=== PATIENT | male | born 1960 | race African-American/Black ===

== ENCOUNTER 2018-05-21 14:24 | Inpatient (IN) | payer OTHER ==
[2018-05-21 17:31] VITALS: BMI 24.4
--- NOTE | 2018-05-21 18:22 | HP ---
CIWA Score Nausea/Vomitin Muscle Tremors: 3 Anxiety: 2 Agitation: 2 Paroxysmal Sweats: 3 Orientation: 0-Oriented Tacttile Disturbances: 0-None Auditory Disturbances: 0-None Visual Disturbances: 0-None Headache: 2-Mild CIWA-Ar Total Score: 14 - Admission Criteria OASAS Guidelines: Admission for Medically Managed Detox: Requires at least one of the followin. CIWA greater than 12 2. Seizures within the past 24 hours 3. Delirium tremens within the past 24 hours 4. Hallucinations within the past 24 hours 5. Acute intervention needed for co occurring medical disorder 6. Acute intervention needed for co occurring psychiatric disorder 7. Severe withdrawal that cannot be handled at a lower level of care (continued vomiting, continued diarrhea, abnormal vital signs) requiring intravenous medication and/or fluids 8. Patient presents the following: CIWA greater than 12 Admission Criteria Met: Admission criteria met Admission ROS [facility] Chief Complaint: alcohol detox 57 yo here for detox so he can remain alcohol free which is required before he can have bilateral hip surgery. His surgeon- Dr. Douglas referred pt here. Pt recently completed alcohol detox and rehab last month from [facility], but restarted drinking alcohol. Pt would like to go for rehab after detox. Alcohol- 6 beers day, no h/o seizures or DT's no other drug use DUR_ no recent controlled substance prescription Utox- no meds BERONICA- 0.09 Allergies/Adverse Reactions: Allergies Allergy/AdvReac Type Severity Reaction Status Date / Time No Known Allergies Allergy Verified 05/21/18 18:36 - Ebola screening Have you traveled outside of the country in the last 21 days: No (N) Have you had contact with anyone from an Ebola affected area: No Have you been sick,other than usual withdrawal symptoms: No Do you have a fever: No - Review of Systems Constitutional: No Symptoms Reported EENT: reports: No Symptoms Reported Respiratory: reports: No Symptoms reported Cardiac: reports: No Symptoms Reported GI: reports: No Symptoms Reported : reports: No Symptoms Reported Musculoskeletal: reports: Joint Pain (hip pain), Joint Stiffness, Other Integumentary: reports: Pruritus, Rash (with new rash- seen by derm given antibiotics and muciprocin- did not get better), Other Neuro: reports: No Symptoms reported Endocrine: reports: No Symptoms Reported Hematology: reports: No Symptoms Reported Psychiatric: reports: No Sypmtoms Reported Patient History - Patient Medical History Hx Anemia: No Hx Asthma: No Hx Chronic Obstructive Pulmonary Disease (COPD): No Hx Cancer: No Hx Cardiac Disorders: No Hx Congestive Heart Failure: No Hx Hypertension: No Hx Hypercholesterolemia: No Hx Pacemaker: No HX Cerebrovascular Accident: No Hx Seizures: No Hx Dementia: No Hx Diabetes: No Hx Gastrointestinal Disorders: No Hx Liver Disease: No Hx Genitourinary Disorders: No Hx Sexually Transmitted Disorders: No Hx Renal Disease (ESRD): No Hx Thyroid Disease: No Hx Human Immunodeficiency Virus (HIV): No Hx Hepatitis C: No Hx Depression: No Hx Suicide Attempt: No Hx Bipolar Disorder: No Hx Schizophrenia: No Other Medical History: bilateral hip pain - Patient Surgical History Other Surgical History: none yet - PPD History Previous Implant?: Yes - Smoking Cessation Smoking history: Current every day smoker Have you smoked in the past 12 months: Yes Aproximately how many cigarettes per day: 20 Hx Chewing Tobacco Use: No Initiated information on smoking cessation: Yes 'Breaking Loose' booklet given: 05/21/18 Family Disease History - Family Disease History Family History: Denies (none per pt) Admission Physical Exam BHS - Vital Signs Vital Signs: Vital Signs - 24 hr 05/21/18 17:27 Temperature 98.7 F Pulse Rate 100 H Respiratory 18 Rate Blood Pressure 156/90 - Physical General Appearance: Yes: Within Normal Limits, No Apparent Distress, Nourished HEENTM: Yes: Within Normal Limits Respiratory: Yes: Within Normal Limits Neck: Yes: Within Normal Limits Cardiology: Yes: Within Normal Limits Abdominal: Yes: Within Normal Limits Genitourinary: Yes: Within Normal Limits Back: Yes: Within Normal Limits Musculoskeletal: Yes: Other (L hip pain> R hip, decreased range of motion) Neurological: Yes: Within Normal Limits Integumentary: Yes: Other (pt with eczema like lesions on back- scaling, thickened erythematous skin, aobut 10 lesions on back) - Diagnostic (1) Alcohol use disorder Current Visit: Yes Status: Acute (2) Rash of back Current Visit: Yes Status: Acute (3) Hip pain, bilateral Current Visit: Yes Status: Acute BHS Breath Alcohol Content Breath Alcohol Content: 0.090 Urine Drug Screen - Results Drug Screen Negative: Yes
[2018-05-21] MEDS ORDERED: chlordiazePOXIDE HCL 25 MG CAPSULE PO PRN (18:36)
[2018-05-21] MEDS ORDERED: MAG HYDROX/AL HYDROX/SIMETH 30 ML UNIT-DOSE CUP PO PRN (18:37)
[2018-05-21] MEDS ORDERED: ACETAMINOPHEN 325 MG TABLET (FP) PO PRN (18:37)
[2018-05-21] MEDS ORDERED: MAGNESIUM HYDROX 2400MG/30ML ORAL SUSPENSION 30 ML CUP PO PRN (18:37)
[2018-05-21] MEDS ORDERED: MAGNESIUM CITRATE 300 ML BOTTLE PO PRN (18:37)
[2018-05-21] MEDS ORDERED: P-EPHED 60MG/TRIPROLIDI 2.5MG TABLET PO PRN (18:37)
[2018-05-21] MEDS ORDERED: MENTHOL/PHENOL 1 EACH UD MM PRN (18:37)
[2018-05-21] MEDS ORDERED: LOPERAMIDE HCL 2 MG CAPSULE PO PRN (18:37)
[2018-05-21] MEDS ORDERED: guaiFENesin/D-METHORPHAN HB 10 ML UNIT-DOSE CUPS PO PRN (18:37)
[2018-05-21] MEDS ORDERED: BACITRACIN 0.9 GM PACKET TP ONE (18:40)
[2018-05-21] MEDS: THIAMINE HCL 100 MG TABLET (FP) PO SCH (21:57)
[2018-05-21] MEDS: MELATONIN 5 MG TABLETS PO PRN (21:57)
[2018-05-21] MEDS: chlordiazePOXIDE HCL 25 MG CAPSULE PO SCH (22:02)
[2018-05-21 23:06] LABS: URINE APPEARANCE CLEAR; URINE BILIRUBIN NEGATIVE (<2.0 mg/dL); URINE COLOR STRAW; URINE GLUCOSE (UA) NEGATIVE (NEGATIVE); URINE KETONE NEGATIVE (NEGATIVE); URINE LEUK ESTERASE NEGATIVE (NEGATIVE); URINE NITRITE NEGATIVE (NEGATIVE); URINE PROTEIN NEGATIVE (NEGATIVE); URINE UROBILINOGEN NEGATIVE mg/dL (0.2-1.0)
[2018-05-22] MEDS: hydrOXYzine PAMOATE 50 MG CAPSULE (FP) PO PRN ×2 (03:42→22:14)
[2018-05-22] MEDS: chlordiazePOXIDE HCL 25 MG CAPSULE PO SCH ×3 (05:54→17:00)
[2018-05-22] MEDS: NICOTINE 21 MG/24 HOURS TOPICAL PATCH TD SCH (10:28)
[2018-05-22] MEDS: PRENATAL VITAMINS W/ FOLIC ACID TABLET (FP) PO SCH (10:28)
[2018-05-22 10:55] LABS: HEMATOCRIT 40.1 % (35.4-49); HEMOGLOBIN 13.5 GM/dL (11.7-16.9); MCH 33.5 pg (25.7-33.7); MCHC 33.6 g/dl (32.0-35.9); MEAN CELL VOLUME 99.5 fl (80-96); MEAN PLT VOLUME 9.5 fl (7.5-11.1); PLATELET COUNT 140 K/MM3 (134-434); RBC 4.03 M/mm3 (4.00-5.60); RDW 15.6 % (11.9-15.9); WHITE BLOOD COUNT 4.9 K/mm3 (4.0-10.0)
[2018-05-22] MEDS ORDERED: COLLOIDAL OATMEAL 1 BAR EACH TP PRN (10:56)
--- NOTE | 2018-05-22 10:59 | PN ---
S CIWA - CIWA Score Nausea/Vomitin-No Nausea/No Vomiting Muscle Tremors: 3 Anxiety: 3 Agitation: 3 Paroxysmal Sweats: 3 Orientation: 0-Oriented Tacttile Disturbances: 0-None Auditory Disturbances: 0-None Visual Disturbances: 0-None Headache: 0-None Present CIWA-Ar Total Score: 12 BHS Progress Note (SOAP) Subjective: anxiety sweats irritable insomnia rash to upper back and itching Objective: 05/22/18 10:58 Vital Signs Temperature 98.8 F 05/22/18 09:50 Pulse Rate 94 H 05/22/18 09:50 Respiratory Rate 16 05/22/18 09:50 Blood Pressure 137/79 05/22/18 09:50 O2 Sat by Pulse Oximetry (%) Laboratory Tests 05/21/18 05/22/18 22:30 07:00 WBC 4.9 RBC 4.03 Hgb 13.5 Hct 40.1 MCV 99.5 H MCH 33.5 MCHC 33.6 RDW 15.6 Plt Count 140 MPV 9.5 Urine Color Straw Urine Appearance Clear Urine pH 6.0 Ur Specific [place] 1.002 L Urine Protein Negative Urine Glucose (UA) Negative Urine Ketones Negative Urine Blood Negative Urine Nitrite Negative Urine Bilirubin Negative Urine Urobilinogen Negative Ur Leukocyte Esterase Negative labs pending aaox3 ambulating no acute distress Assessment: 05/22/18 10:58 withdrawal sx Plan: continue detox increase fluids aveeno soap lidex cream
[2018-05-22 11:26] LABS: ALBUMIN 3.3 g/dl (3.4-5.0); ALK PHOS 88 U/L (45-117); ANION GAP 10 MMOL/L (8-16); BILIRUBIN,TOTAL 0.8 mg/dL (0.2-1); BLOOD UREA NITROGEN 7 mg/dL (7-18); CALCIUM 8.5 mg/dL (8.5-10.1); CHLORIDE 103 mmol/L (98-107); CO2 25 mmol/L (21-32); CREATININE 0.7 mg/dL (0.55-1.3); GLUCOSE,RANDOM 157 mg/dL (74-106); POTASSIUM 3.7 mmol/L (3.5-5.1); SGOT/AST 55 U/L (15-37); SGPT/ALT 34 U/L (13-61); SODIUM 139 mmol/L (136-145); TOT PROT 6.7 g/dl (6.4-8.2)
[2018-05-22] MEDS: FLUOCINONIDE 0.05% CREAM (60 GM TUBE) TP SCH ×3 (14:33→22:14)
--- NOTE | 2018-05-22 17:00 | EKG ---
Test Reason : Blood Pressure : / mmHG Vent. Rate : 091 BPM Atrial Rate : 091 BPM P-R Int : 204 ms QRS Dur : 090 ms QT Int : 346 ms P-R-T Axes : 073 070 067 degrees QTc Int : 425 ms NORMAL SINUS RHYTHM NORMAL ECG NO PREVIOUS ECGS AVAILABLE Confirmed by MD HOMERO, EAGLE ([id number]) on 05/22/2018 5:00:09 PM Referred By: Confirmed By:EAGLE VALENTIN MD
[2018-05-22] MEDS: THIAMINE HCL 100 MG TABLET (FP) PO SCH (22:13)
[2018-05-22] MEDS: MELATONIN 5 MG TABLETS PO PRN (22:14)
[2018-05-22] MEDS: chlordiazePOXIDE 5 MG CAPSULE PO SCH (22:14)
[2018-05-23] MEDS: chlordiazePOXIDE 5 MG CAPSULE PO SCH ×4 (06:23→22:22)
--- NOTE | 2018-05-23 10:28 | PN ---
[facility] CIWA - CIWA Score Nausea/Vomitin-No Nausea/No Vomiting Muscle Tremors: 3 Anxiety: 3 Agitation: 4-Moderately Restless Paroxysmal Sweats: 3 Orientation: 0-Oriented Tacttile Disturbances: 0-None Auditory Disturbances: 0-None Visual Disturbances: 0-None Headache: 0-None Present CIWA-Ar Total Score: 13 BHS Progress Note (SOAP) Subjective: my skin on my back is feeling better sweats anxiety interrupted sleep Objective: 05/23/18 10:27 Vital Signs Temperature 98.1 F 05/23/18 09:25 Pulse Rate 99 H 05/23/18 09:25 Respiratory Rate 18 05/23/18 09:25 Blood Pressure 127/63 05/23/18 09:25 O2 Sat by Pulse Oximetry (%) Laboratory Tests 05/21/18 05/22/18 05/22/18 22:30 07:00 07:00 WBC 4.9 RBC 4.03 Hgb 13.5 Hct 40.1 MCV 99.5 H MCH 33.5 MCHC 33.6 RDW 15.6 Plt Count 140 MPV 9.5 Sodium 139 Potassium 3.7 Chloride 103 Carbon Dioxide 25 Anion Gap 10 BUN 7 Creatinine 0.7 Creat Clearance w eGFR > 60 Random Glucose 157 H Calcium 8.5 Total Bilirubin 0.8 AST 55 H ALT 34 Alkaline Phosphatase 88 Total Protein 6.7 Albumin 3.3 L Urine Color Straw Urine Appearance Clear Urine pH 6.0 Ur Specific [place] 1.002 L Urine Protein Negative Urine Glucose (UA) Negative Urine Ketones Negative Urine Blood Negative Urine Nitrite Negative Urine Bilirubin Negative Urine Urobilinogen Negative Ur Leukocyte Esterase Negative RPR Titer 05/22/18 07:00 WBC RBC Hgb Hct MCV MCH MCHC RDW Plt Count MPV Sodium Potassium Chloride Carbon Dioxide Anion Gap BUN Creatinine Creat Clearance w eGFR Random Glucose Calcium Total Bilirubin AST ALT Alkaline Phosphatase Total Protein Albumin Urine Color Urine Appearance Urine pH Ur Specific [place] Urine Protein Urine Glucose (UA) Urine Ketones Urine Blood Urine Nitrite Urine Bilirubin Urine Urobilinogen Ur Leukocyte Esterase RPR Titer Nonreactive aaox3 ambulating no acute distress Assessment: 05/23/18 10:27 withdrawal sx Plan: continue detox increase fluids continue with lidex as ordered
[2018-05-23] MEDS: NICOTINE 21 MG/24 HOURS TOPICAL PATCH TD SCH (10:44)
[2018-05-23] MEDS: FLUOCINONIDE 0.05% CREAM (60 GM TUBE) TP SCH ×4 (10:44→22:24)
[2018-05-23] MEDS: PRENATAL VITAMINS W/ FOLIC ACID TABLET (FP) PO SCH (10:44)
[2018-05-23] MEDS: IBUPROFEN 400 MG TABLET (FP) PO PRN (22:22)
[2018-05-23] MEDS: hydrOXYzine PAMOATE 50 MG CAPSULE (FP) PO PRN (22:22)
[2018-05-23] MEDS: THIAMINE HCL 100 MG TABLET (FP) PO SCH (22:23)
[2018-05-24] MEDS: chlordiazePOXIDE 5 MG CAPSULE PO SCH ×4 (06:00→22:09)
--- NOTE | 2018-05-24 09:45 | PN ---
BHS Progress Note (SOAP) Subjective: feeling better sweats Objective: 05/24/18 09:45 Vital Signs Temperature 99.1 F 05/24/18 09:16 Pulse Rate 93 H 05/24/18 09:16 Respiratory Rate 16 05/24/18 09:16 Blood Pressure 135/73 05/24/18 09:16 O2 Sat by Pulse Oximetry (%) aaox3 ambulating no acute distress Assessment: 05/24/18 09:45 mild withdrawal sx Plan: continue detox increase fluids d/c in am
[2018-05-24] MEDS: FLUOCINONIDE 0.05% CREAM (60 GM TUBE) TP SCH ×4 (10:13→22:08)
[2018-05-24] MEDS: NICOTINE 21 MG/24 HOURS TOPICAL PATCH TD SCH (10:13)
[2018-05-24] MEDS: PRENATAL VITAMINS W/ FOLIC ACID TABLET (FP) PO SCH (10:13)
[2018-05-24] MEDS: hydrOXYzine PAMOATE 50 MG CAPSULE (FP) PO PRN (22:07)
[2018-05-24] MEDS: MELATONIN 5 MG TABLETS PO PRN (22:07)
[2018-05-24] MEDS: THIAMINE HCL 100 MG TABLET (FP) PO SCH (22:07)
[2018-05-24] MEDS: IBUPROFEN 400 MG TABLET (FP) PO PRN (22:07)
[2018-05-25] MEDS: chlordiazePOXIDE 5 MG CAPSULE PO SCH (05:35)
[2018-05-25 06:16] VITALS: BP 150/92; PULSE 75; TEMP 97.7
--- NOTE | 2018-05-25 09:39 | DS ---
[facility] Detox Discharge Summary Admission Date: 05/21/18 Discharge Date: 05/25/18 - History Present History: Alcohol Dependence - Physical Exam Results Vital Signs: Vital Signs Temperature 97.7 F 05/25/18 06:00 Pulse Rate 75 05/25/18 06:00 Respiratory Rate 18 05/25/18 06:00 Blood Pressure 150/92 05/25/18 06:00 O2 Sat by Pulse Oximetry (%) - Treatment Hospital Course: Detox Protocol Followed, Detoxed Safely, Responded well, Discharged Condition Good, Rehab Referral Accepted - Medication Discharge Medications: Ambulatory Orders Naproxen/Esomeprazole Mag [Vimovo Dr 500-20 mg Tablet] 1 each PO BID 05/21/18 - Diagnosis (1) Alcohol use disorder Current Visit: Yes Status: Chronic (2) Hip pain, bilateral Current Visit: Yes Status: Chronic (3) Rash of back Current Visit: Yes Status: Chronic - AMA Did Patient Leave Against Medical Advice: No (pt decline; pt prefer [facility] outpatient rehab.)
== END 2018-05-25 09:49 | disposition home or self-care (01) | DRG 775 ==
LOC: YASAS 14:24 → Y6N 19:41
PROVIDERS: ADMIT Neuromusculoskeletal Medicine & OMM; ATTEND Neuromusculoskeletal Medicine & OMM
PROC: HZ2ZZZZ Detoxification Services for Substance Abuse Treatment (ICD-10-PCS; principal; 2018-05-21)
DX: F10.230 Alcohol dependence with withdrawal, uncomplicated (principal); F17.210 Nicotine dependence, cigarettes, uncomplicated; M25.551 Pain in right hip; M25.552 Pain in left hip; R21 Rash and other nonspecific skin eruption
CPT/HCPCS: 36415; 80053; 81003; 85027; 86593; 93005; 93010

== ENCOUNTER 2018-10-15 15:55 | Inpatient (IN) | payer OTHER ==
[2018-10-15 20:32] VITALS: BMI 25.7
--- NOTE | 2018-10-15 23:51 | HP ---
CIWA Score Nausea/Vomitin-Mild Nausea/No Vomiting Muscle Tremors: 4-Moderate,w/Arms Extend Anxiety: 3 Agitation: 4-Moderately Restless Paroxysmal Sweats: 2 Orientation: 0-Oriented Tacttile Disturbances: 0-None Auditory Disturbances: 0-None Visual Disturbances: 0-None Headache: 3-Moderate CIWA-Ar Total Score: 17 - Admission Criteria OASAS Guidelines: Admission for Medically Managed Detox: Requires at least one of the followin. CIWA greater than 12 2. Seizures within the past 24 hours 3. Delirium tremens within the past 24 hours 4. Hallucinations within the past 24 hours 5. Acute intervention needed for co occurring medical disorder 6. Acute intervention needed for co occurring psychiatric disorder 7. Severe withdrawal that cannot be handled at a lower level of care (continued vomiting, continued diarrhea, abnormal vital signs) requiring intravenous medication and/or fluids 8. Admission ROS [facility] Chief Complaint: Alcohol withdrawal symptoms Allergies/Adverse Reactions: Allergies Allergy/AdvReac Type Severity Reaction Status Date / Time No Known Allergies Allergy Verified 10/15/18 20:21 History of Present Illness: 58 years old with a long history of alcohol dependence (since age 15 years) is seeking admission to detox. Patient has been in previous detox and reports insignificant period of sobriety. He reports that he is homeless and denies suicidal ideation at this time. He has medical history of chronic hip and back pain. Exam Limitations: No Limitations - Ebola screening Have you traveled outside of the country in the last 21 days: No Have you had contact with anyone from an Ebola affected area: No Do you have a fever: No - Review of Systems Constitutional: Chills, Loss of Appetite, Malaise, Changes in sleep EENT: reports: No Symptoms Reported Respiratory: reports: No Symptoms reported Cardiac: reports: No Symptoms Reported GI: reports: Nausea, Poor Appetite, Poor Fluid Intake, Abdominal cramping : reports: No Symptoms Reported Musculoskeletal: reports: Back Pain, Other (hip pain) Integumentary: reports: Dryness, Flushing Neuro: reports: Headache, Tremors Endocrine: reports: No Symptoms Reported Hematology: reports: No Symptoms Reported Psychiatric: reports: Mood/Affect Appropiate, Orientated x3, Anxious Other Systems: Reviewed and Negative Patient History - Patient Medical History Hx Anemia: No Hx Asthma: No Hx Chronic Obstructive Pulmonary Disease (COPD): No Hx Cancer: No Hx Cardiac Disorders: No Hx Congestive Heart Failure: No Hx Hypertension: No Hx Hypercholesterolemia: No Hx Pacemaker: No HX Cerebrovascular Accident: No Hx Seizures: No Hx Dementia: No Hx Diabetes: No Hx Gastrointestinal Disorders: No Hx Liver Disease: No Hx Genitourinary Disorders: No Hx Sexually Transmitted Disorders: No Hx Renal Disease (ESRD): No Hx Thyroid Disease: No Hx Human Immunodeficiency Virus (HIV): No Hx Hepatitis C: No Hx Depression: No Hx Suicide Attempt: No Hx Bipolar Disorder: No Hx Schizophrenia: No - Patient Surgical History Past Surgical History: No Hx Neurologic Surgery: No Hx Cataract Extraction: No Hx Cardiac Surgery: No Hx Lung Surgery: No Hx Abdominal Surgery: No Hx Appendectomy: No Hx Cholecystectomy: No Hx Genitourinary Surgery: No Hx Orthopedic Surgery: No Other Surgical History: none yet Anesthesia Reaction: No - PPD History Previous Implant?: Yes Documented Results: Negative w/proof Implanted On Prior [facility] Admission?: Yes Date: 05/23/18 PPD to be Administered?: No - Reproductive History Patient is a Female of Child Bearing Age (11 -55 yrs old): No (male) - Smoking Cessation Smoking history: Current every day smoker Have you smoked in the past 12 months: Yes Aproximately how many cigarettes per day: 20 Hx Chewing Tobacco Use: No Initiated information on smoking cessation: Yes 'Breaking Loose' booklet given: 10/15/18 - Substance & Tx. History Hx Alcohol Use: Yes Hx Substance Use: No Substance Use Type: Alcohol Hx Substance Use Treatment: Yes ([facility] ) - Substances abused Alcohol Substance route: Oral Frequency: Daily Amount used: Beer 8-10 cans, Vodka 1 pint Age of first use: 15 Date of last use: 10/15/18 Family Disease History - Family Disease History Family History: Denies Admission Physical Exam BHS - Vital Signs Vital Signs: Vital Signs - 24 hr 10/15/18 20:17 Temperature 99.6 F Pulse Rate 97 H Respiratory 18 Rate Blood Pressure 117/75 - Physical General Appearance: Yes: Moderate Distress, Tremorous, Anxious HEENTM: Yes: Within Normal Limits Respiratory: Yes: Lungs Clear, Normal Breath Sounds, No Respiratory Distress Neck: Yes: Within Normal Limits, No masses,lesions,Nodules Breast: Yes: Breast Exam Deferred Cardiology: Yes: Regular Rhythm, Regular Rate Abdominal: Yes: Normal Bowel Sounds Genitourinary: Yes: Within Normal Limits Musculoskeletal: Yes: full range of Motion Extremities: Yes: Tremors Neurological: Yes: Alert, Normal Mood/Affect Integumentary: Yes: Warm Lymphatic: Yes: Within Normal Limits - Diagnostic (1) Alcohol dependence with uncomplicated withdrawal Current Visit: Yes Status: Chronic (2) Back pain Current Visit: Yes Status: Chronic Qualifiers: Back pain location: low back pain Chronicity: unspecified (3) Cigarette nicotine dependence Current Visit: Yes Status: Chronic Qualifiers: Substance use status: uncomplicated Qualified Code(s): F17.210 - Nicotine dependence, cigarettes, uncomplicated (4) Hip pain, bilateral Current Visit: No Status: Chronic Cleared for Admission S - Detox or Rehab [facility] Level of Care: Medically Managed Detox Regimen/Protocol: Librium Breathalyzer - Breathalyzer Breathalyzer: 0 Urine Drug Screen - Test Device Lot number: [id number] Expiration date: 06/28/20 - Control Is test valid?: Yes - Results Drug screen NEGATIVE: Yes Inpatient Rehab Admission - Rehab Decision to Admit Inpatient rehab admission?: No
[2018-10-15] MEDS ORDERED: MAG HYDROX/AL HYDROX/SIMETH 30 ML UNIT-DOSE CUP PO PRN (23:57)
[2018-10-15] MEDS ORDERED: MENTHOL/PHENOL 1 EACH UD MM PRN (23:57)
[2018-10-15] MEDS ORDERED: ACETAMINOPHEN 325 MG TABLET (FP) PO PRN ×2 (23:57)
[2018-10-15] MEDS ORDERED: hydrOXYzine PAMOATE 25 MG CAPSULE (FP) PO PRN (23:57)
[2018-10-15] MEDS ORDERED: BISMUTH SUBSALICYLATE 524 MG/30 ML UD PO PRN (23:57)
[2018-10-15] MEDS ORDERED: IBUPROFEN 400 MG TABLET (FP) PO PRN (23:57)
[2018-10-15] MEDS ORDERED: MAGNESIUM CITRATE 300 ML BOTTLE PO PRN (23:57)
[2018-10-15] MEDS ORDERED: MAGNESIUM HYDROX 2400MG/30ML ORAL SUSPENSION 30 ML CUP PO PRN (23:57)
[2018-10-15] MEDS ORDERED: NICOTINE POLACRILEX 2 MG GUM BUC PRN (23:57)
[2018-10-16] MEDS ORDERED: COLLOIDAL OATMEAL 1 BAR EACH TP PRN (00:02)
[2018-10-16] MEDS ORDERED: chlordiazePOXIDE HCL 25 MG CAPSULE PO PRN (00:04)
[2018-10-16] MEDS: MELATONIN 5 MG TABLETS PO PRN ×2 (02:28→22:37)
[2018-10-16] MEDS: METHOCARBAMOL 500 MG TABLET PO PRN (02:28)
[2018-10-16] MEDS: chlordiazePOXIDE HCL 25 MG CAPSULE PO SCH ×2 (05:55→10:43)
[2018-10-16] MEDS: PRENATAL VITAMINS W/ FOLIC ACID TABLET (FP) PO SCH (10:43)
[2018-10-16] MEDS: NICOTINE 21 MG/24 HOURS TOPICAL PATCH TD SCH (10:43)
[2018-10-16 10:51] LABS: HEMATOCRIT 36.8 % (35.4-49); HEMOGLOBIN 12.5 GM/dL (11.7-16.9); MCH 33.9 pg (25.7-33.7); MEAN CELL VOLUME 99.8 fl (80-96); MEAN PLT VOLUME 9.5 fl (7.5-11.1); PLATELET COUNT 106 K/MM3 (134-434); RBC 3.69 M/mm3 (4.00-5.60); RDW 14.2 % (11.9-15.9); WHITE BLOOD COUNT 6.7 K/mm3 (4.0-10.0)
[2018-10-16 10:53] LABS: ALBUMIN 3.5 g/dl (3.4-5.0); BILIRUBIN,TOTAL 1.1 mg/dL (0.2-1); BLOOD UREA NITROGEN 5.4 mg/dL (7-18); CALCIUM 9.2 mg/dL (8.5-10.1); CREATININE 0.7 mg/dL (0.55-1.3); POTASSIUM 3.6 mmol/L (3.5-5.1); TOT PROT 7.1 g/dl (6.4-8.2)
[2018-10-16] MEDS ORDERED: LORazepam 1 MG TABLET PO PRN (12:25)
--- NOTE | 2018-10-16 12:31 | PN ---
[facility] CIWA - CIWA Score Nausea/Vomitin-No Nausea/No Vomiting Muscle Tremors: 3 Anxiety: 3 Agitation: 2 Paroxysmal Sweats: No Perspiration Orientation: 0-Oriented Tacttile Disturbances: 2-Mild Itch/Numbness/Burn Auditory Disturbances: 0-None Visual Disturbances: 3-Moderate Sensitivity Headache: 0-None Present CIWA-Ar Total Score: 13 S Progress Note (SOAP) Subjective: Interrupted Sleep, Tremors, Body Aches. Objective: PATIENT A & O X 3, OBSERVED AMBULATING ON UNIT UNASSISTED. IN NO ACUTE DISTRESS. 10/16/18 12:32 Vital Signs Temperature 99.0 F 10/16/18 09:48 Pulse Rate 102 H 10/16/18 09:48 Respiratory Rate 18 10/16/18 09:48 Blood Pressure 130/76 10/16/18 09:48 O2 Sat by Pulse Oximetry (%) Laboratory Tests 10/16/18 10/16/18 10/16/18 07:20 07:20 07:20 WBC 6.7 RBC 3.69 L Hgb 12.5 Hct 36.8 MCV 99.8 H MCH 33.9 H MCHC 34.0 RDW 14.2 Plt Count 106 L D MPV 9.5 Sodium 134 L Potassium 3.6 Chloride 98 Carbon Dioxide 28 Anion Gap 9 BUN 5.4 L Creatinine 0.7 Est GFR (CKD-EPI)AfAm 122.27 Est GFR (CKD-EPI)NonAf 105.50 Random Glucose 117 H Calcium 9.2 Total Bilirubin 1.1 H AST 300 H ALT 101 H Alkaline Phosphatase 152 H Total Protein 7.1 Albumin 3.5 RPR Titer Nonreactive LABS NOTED. 10/16/18 12:33 Assessment: 10/16/18 12:32 WITHDRAWAL SYMPTOMS. THROMBOCYTOPENIA. ELEVATED LIVER ENZYMES. ELEVATED BLOOD PRESSURE (INTERMITTENT READINGS). PATIENT DENIES KNOWN HISTORY OF HTN. Plan: CONTINUE DETOX. CHANGE TO ATIVAN DETOX PROTOCOL DUE TO ELEVATED LIVER ENZYME VALUES NOTED ON DETOX ADMISSION. HEPATIC FUNCTION PANEL ON 10/18/2018 TO SEE IF ANY CHANGE IN LIVER ENZYME VALUES FROM ADMISSION VALUES.
[2018-10-16] MEDS: LORazepam 2 MG TABLET PO SCH ×2 (17:19→22:36)
[2018-10-16] MEDS: THIAMINE HCL 100 MG TABLET (FP) PO SCH (22:36)
[2018-10-17] MEDS ORDERED: chlordiazePOXIDE HCL 25 MG CAPSULE PO SCH (05:00)
[2018-10-17] MEDS: LORazepam 1 MG TABLET PO SCH ×4 (05:56→22:10)
[2018-10-17] MEDS: PRENATAL VITAMINS W/ FOLIC ACID TABLET (FP) PO SCH (10:45)
[2018-10-17] MEDS: NICOTINE 21 MG/24 HOURS TOPICAL PATCH TD SCH (10:45)
[2018-10-17] MEDS ORDERED: LORazepam 0.5 MG TABLET PO PRN (12:25)
--- NOTE | 2018-10-17 16:54 | PN ---
S CIWA - CIWA Score Nausea/Vomitin-No Nausea/No Vomiting Muscle Tremors: 2 Anxiety: 2 Agitation: 1-Slight > Activity Paroxysmal Sweats: 2 Orientation: 2-Disoriented Date<2 days Tacttile Disturbances: 0-None Auditory Disturbances: 0-None Visual Disturbances: 2-Mild Sensitivity Headache: 0-None Present CIWA-Ar Total Score: 11 BHS Progress Note (SOAP) Subjective: Anxious, Tremors, Body Aches. Objective: PATIENT A & O X 2 (UNCERTAIN ABOUT CURRENT DAY / DATE). PATIENT OBSERVED AMBULATING ON UNIT UNASSISTED. IN NO ACUTE DISTRESS. 10/17/18 16:55 Vital Signs Temperature 97.8 F 10/17/18 13:19 Pulse Rate 117 H 10/17/18 13:19 Respiratory Rate 20 10/17/18 13:19 Blood Pressure 126/83 10/17/18 13:19 O2 Sat by Pulse Oximetry (%) Laboratory Tests 10/16/18 10/16/18 10/16/18 07:20 07:20 07:20 WBC 6.7 RBC 3.69 L Hgb 12.5 Hct 36.8 MCV 99.8 H MCH 33.9 H MCHC 34.0 RDW 14.2 Plt Count 106 L D MPV 9.5 Sodium 134 L Potassium 3.6 Chloride 98 Carbon Dioxide 28 Anion Gap 9 BUN 5.4 L Creatinine 0.7 Est GFR (CKD-EPI)AfAm 122.27 Est GFR (CKD-EPI)NonAf 105.50 Random Glucose 117 H Calcium 9.2 Total Bilirubin 1.1 H AST 300 H ALT 101 H Alkaline Phosphatase 152 H Total Protein 7.1 Albumin 3.5 RPR Titer Nonreactive LABS NOTED. Assessment: 10/17/18 16:56 WITHDRAWAL SYMPTOMS. THROMBOCYTOPENIA. ELEVATED LIVER ENZYMES (AST, ALT, ALKALINE PHOSPHATASE). Plan: CONTINUE DETOX. HEPATIC FUNCTION PANEL ORDERED FOR TOMORROW AM TO SEE IF ANY CHANGE LIVER ENZYME VALUES IN COMPARISON TO ADMISSION VALUES.
[2018-10-17] MEDS: THIAMINE HCL 100 MG TABLET (FP) PO SCH (22:10)
[2018-10-17] MEDS: MELATONIN 5 MG TABLETS PO PRN (22:11)
[2018-10-18] MEDS ORDERED: chlordiazePOXIDE HCL 10 MG CAPSULE PO PRN (05:00)
[2018-10-18] MEDS ORDERED: chlordiazePOXIDE HCL 10 MG CAPSULE PO SCH (05:00)
[2018-10-18] MEDS: LORazepam 0.5 MG TABLET PO SCH ×4 (05:57→22:34)
[2018-10-18 09:55] LABS: BILIRUBIN,DIRECT 0.3 mg/dL (0.0-0.2); BILIRUBIN,TOTAL 0.8 mg/dL (0.2-1); TOT PROT 6.4 g/dl (6.4-8.2)
[2018-10-18] MEDS: PRENATAL VITAMINS W/ FOLIC ACID TABLET (FP) PO SCH (10:33)
[2018-10-18] MEDS: NICOTINE 21 MG/24 HOURS TOPICAL PATCH TD SCH (10:34)
--- NOTE | 2018-10-18 16:56 | PN ---
S CIWA - CIWA Score Nausea/Vomitin-No Nausea/No Vomiting Muscle Tremors: 2 Anxiety: 3 Agitation: 2 Paroxysmal Sweats: No Perspiration Orientation: 0-Oriented Tacttile Disturbances: 0-None Auditory Disturbances: 0-None Visual Disturbances: 1-Very Mild Sensitivity Headache: 0-None Present CIWA-Ar Total Score: 8 BHS Progress Note (SOAP) Subjective: Anxious, Tremors, Body Aches Objective: PATIENT A & O X 3, OBSERVED AMBULATING ON UNIT WITH ASSISTANCE OF A CANE. IN NO ACUTE DISTRESS. 10/18/18 16:56 Vital Signs Temperature 98.9 F 10/18/18 13:50 Pulse Rate 100 H 10/18/18 13:50 Respiratory Rate 18 10/18/18 13:50 Blood Pressure 122/79 10/18/18 13:50 O2 Sat by Pulse Oximetry (%) Laboratory Tests 10/16/18 10/16/18 10/16/18 07:20 07:20 07:20 WBC 6.7 RBC 3.69 L Hgb 12.5 Hct 36.8 MCV 99.8 H MCH 33.9 H MCHC 34.0 RDW 14.2 Plt Count 106 L D MPV 9.5 Sodium 134 L Potassium 3.6 Chloride 98 Carbon Dioxide 28 Anion Gap 9 BUN 5.4 L Creatinine 0.7 Est GFR (CKD-EPI)AfAm 122.27 Est GFR (CKD-EPI)NonAf 105.50 Random Glucose 117 H Calcium 9.2 Total Bilirubin 1.1 H Direct Bilirubin AST 300 H ALT 101 H Alkaline Phosphatase 152 H Total Protein 7.1 Albumin 3.5 RPR Titer Nonreactive 10/18/18 07:30 WBC RBC Hgb Hct MCV MCH MCHC RDW Plt Count MPV Sodium Potassium Chloride Carbon Dioxide Anion Gap BUN Creatinine Est GFR (CKD-EPI)AfAm Est GFR (CKD-EPI)NonAf Random Glucose Calcium Total Bilirubin 0.8 Direct Bilirubin 0.3 H AST 256 H ALT 145 H Alkaline Phosphatase 148 H Total Protein 6.4 Albumin 3.0 L RPR Titer LABS NOTED. RESULTS OF HEPATIC FUNCTION PANEL. SLIGHT REDUCTION IN AST, ALKALINE PHOSPHATASE, AND IN TOTAL BILIRUBIN LEVELS NOTED. INCREASE IN ALT LEVEL NOTED ON REPEAT ASSESSMENT. 10/18/18 16:57 Assessment: 10/18/18 16:59 WITHDRAWAL SYMPTOMS. ELEVATED LIVER ENZYMES HYPERBILIRUBINEMIA THROMBOCYTOPENIA 10/18/18 17:00 Plan: CONTINUE DETOX. PATIENT ADVISED TO FOLLOW-UP WITH [facility] AFTER DISCHARGE FROM DETOX FOR GENERAL MEDICAL ASSESSMENT AND FOR ELEVATED LIVER ENZYMES AND ELEVATED BILIRUBIN LEVEL AND FOR LOW PLATELET LEVEL NOTED ON DETOX ADMISSION AND REPEAT LABORATORY ASSESSMENTS. PATIENT VERBALIZED UNDERSTANDING OF RECOMMENDATION. COPIES OF RESULTS OF ALL LABS DRAWN WHILE ADMITTED FOR DETOX WILL BE GIVEN TO PATIENT AT TIME OF DISCHARGE FROM DETOX UNIT. PATIENT SCHEDULED FOR D/C TOMORROW AM.
[2018-10-18] MEDS: THIAMINE HCL 100 MG TABLET (FP) PO SCH (22:34)
[2018-10-18] MEDS: MELATONIN 5 MG TABLETS PO PRN (22:34)
[2018-10-18] MEDS: METHOCARBAMOL 500 MG TABLET PO PRN (22:36)
[2018-10-19] MEDS ORDERED: chlordiazePOXIDE HCL 10 MG CAPSULE PO SCH (05:00)
[2018-10-19] MEDS: LORazepam 0.5 MG TABLET PO SCH (06:33)
[2018-10-19 07:48] VITALS: BP 117/77; PULSE 80; TEMP 97.3
--- NOTE | 2018-10-19 14:53 | DS ---
[facility] Detox Discharge Summary Admission Date: 10/16/18 Discharge Date: 10/19/18 - History Present History: Alcohol Dependence Additional Comments: PATIENT WILL RETURN TO [facility] ([place], [place]) FOR HOUSING. PATIENT ALSO ADVISED TO CONSIDER LOCAL 12-STEP / AA OUTPATIENT SUPPORT GROUP PROGRAMS FOR AFTERCARE. PATIENT ALSO ADVISED TO FOLLOW-UP WITH CLINICAL REHAB LIAISON AFTER DISCHARGE FROM DETOX FOR GENERAL MEDICAL ASSESSMENT AND FOR ELEVATED LIVER ENZYMES AND FOR LOW PLATELET LEVELS NOTED ON DETOX ADMISSION AND REPEAT LABORATORY ASSESSMENTS. PATIENT VERBALIZED UNDERSTANDING OF ALL RECOMMENDATIONS PRESENTED TO HIM PRIOR TO DISCHARGE FROM DETOX UNIT. COPIES OF RESULTS OF ALL LABS DRAWN WHILE ADMITTED FOR DETOX GIVEN TO PATIENT AT TIME OF DISCHARGE FROM DETOX UNIT. PATIENT WAS DISCHARGED FROM DETOX UNIT IN STABLE MEDICAL CONDITION. Pertinent Past History: History Of Chronic Hip and Back Pain, Thrombocytopenia, Elevated Liver Enzymes ( AST, ALT, Alklaline Phosphatase), Nicotine Dependence. - Physical Exam Results Vital Signs: Vital Signs Temperature 97.3 F L 10/19/18 07:47 Pulse Rate 80 10/19/18 07:47 Respiratory Rate 20 10/19/18 07:47 Blood Pressure 117/77 10/19/18 07:47 O2 Sat by Pulse Oximetry (%) Pertinent Admission Physical Exam Findings: WITHDRAWAL SYMPTOMS. Laboratory Tests 10/16/18 10/16/18 10/16/18 07:20 07:20 07:20 WBC 6.7 RBC 3.69 L Hgb 12.5 Hct 36.8 MCV 99.8 H MCH 33.9 H MCHC 34.0 RDW 14.2 Plt Count 106 L D MPV 9.5 Sodium 134 L Potassium 3.6 Chloride 98 Carbon Dioxide 28 Anion Gap 9 BUN 5.4 L Creatinine 0.7 Est GFR (CKD-EPI)AfAm 122.27 Est GFR (CKD-EPI)NonAf 105.50 Random Glucose 117 H Calcium 9.2 Total Bilirubin 1.1 H Direct Bilirubin AST 300 H ALT 101 H Alkaline Phosphatase 152 H Total Protein 7.1 Albumin 3.5 RPR Titer Nonreactive 10/18/18 07:30 WBC RBC Hgb Hct MCV MCH MCHC RDW Plt Count MPV Sodium Potassium Chloride Carbon Dioxide Anion Gap BUN Creatinine Est GFR (CKD-EPI)AfAm Est GFR (CKD-EPI)NonAf Random Glucose Calcium Total Bilirubin 0.8 Direct Bilirubin 0.3 H AST 256 H ALT 145 H Alkaline Phosphatase 148 H Total Protein 6.4 Albumin 3.0 L RPR Titer LABS NOTED. - Treatment Hospital Course: Detox Protocol Followed, Detoxed Safely, Responded well, Discharged Condition Good Patient has Accepted a Rehab Referral to: PT ADVISED TO CONSIDER LOCAL 12-STEP/ AA OUTPATIENT SUPPORT GROUP PROGRAM. - Medication Discharge Medications: Ambulatory Orders NK [No Known Home Medication] 10/15/18 - Diagnosis (1) Alcohol dependence with uncomplicated withdrawal Status: Acute (2) Back pain Status: Chronic Qualifiers: Back pain location: low back pain Chronicity: unspecified Back pain laterality: unspecified Sciatica presence: unspecified whether sciatica present Qualified Code(s): M54.5 - Low back pain (3) Cigarette nicotine dependence Status: Chronic Qualifiers: Substance use status: uncomplicated Qualified Code(s): F17.210 - Nicotine dependence, cigarettes, uncomplicated (4) Hip pain, bilateral Status: Chronic (5) Elevated liver enzymes Status: Acute (6) Thrombocytopenia Status: Acute - AMA Did Patient Leave Against Medical Advice: No
== END 2018-10-19 09:15 | disposition home or self-care (01) | DRG 775 ==
LOC: YASAS 15:55 → Y3N 10-16 01:59
PROVIDERS: ADMIT Surgery; ATTEND Surgery
PROC: HZ2ZZZZ Detoxification Services for Substance Abuse Treatment (ICD-10-PCS; principal; 2018-10-16)
DX: F10.230 Alcohol dependence with withdrawal, uncomplicated (principal); F17.210 Nicotine dependence, cigarettes, uncomplicated; D69.6 Thrombocytopenia, unspecified; E80.6 Other disorders of bilirubin metabolism; R94.5 Abnormal results of liver function studies; M25.551 Pain in right hip; M25.552 Pain in left hip; M54.5 Low back pain; Z59.0 Homelessness
CPT/HCPCS: 36415; 80053; 80076; 85027; 86593